=== PATIENT | male | born 1980 | race Caucasian/White ===

== ENCOUNTER 2019-11-25 00:44 | Inpatient (IN) | payer MEDICAID ==
[2019-11-25] MEDS ORDERED: Acetaminophen 500 MG Tab PO ONE (01:07)
[2019-11-25 01:51] LABS: CHLORIDE,CL 94 mmol/L (98-115); SODIUM,NA 128 mmol/L (136-145)
[2019-11-25] MEDS ORDERED: Sodium Chloride 0.9% 1,000 ML IV ONE (01:57)
[2019-11-25] MEDS ORDERED: Sodium Chloride 0.9% 10 ML Syringe FLUSH PRN (02:00)
[2019-11-25] MEDS ORDERED: Levofloxacin/Dextrose 5%-Water 500 MG in Premix Bag 1 BAG IV ONE (02:06)
[2019-11-25] MEDS ORDERED: Ondansetron 4 MG/2 ML SDV IV PRN (02:52)
[2019-11-25] MEDS ORDERED: Ondansetron 4 MG Tab.DIS PO PRN (02:52)
[2019-11-25] MEDS ORDERED: Docusate Sodium 100 MG Cap PO PRN (02:52)
[2019-11-25] MEDS ORDERED: Albuterol 0.083% 2.5 MG/3 ML Neb Soln NEB PRN (02:52)
--- NOTE | 2019-11-25 03:17 | EDM.PDOC ---
ED HPI GENERAL MEDICAL PROBLEM - General Chief Complaint: General Stated Complaint: fever, body aches,on antibiotic Time Seen by Provider: 11/25/19 01:00 Source of Information: Reports: Patient History Limitations: Reports: No Limitations - History of Present Illness INITIAL COMMENTS - FREE TEXT/NARRATIVE: 39-year-old male presents with a fever over the last of 48-72 hours. He's been taking Tylenol and ibuprofen without improvement. He complains of cough, muscle aches, and weakness. He was seen in [facility] on Tuesday just prior to closing was started on Zithromax which patient picked up today at the pharmacy. His temperature upon arrival was 102.8. Onset: Gradual Onset Date: 11/22/19 Duration: Day(s):, Getting Worse Location: Reports: Chest Quality: Reports: Ache Severity: Severe Improves with: Reports: None Worsens with: Reports: None Associated Symptoms: Reports: Cough, Fever/Chills, Weakness. Denies: Chest Pain , Diaphoresis, Headaches, Nausea/Vomiting Treatments INSTRUMENTATION SPECIALIST: Reports: Acetaminophen, NSAIDS - Related Data Allergies Allergy/AdvReac Type Severity Reaction Status Date / Time nickel Allergy Rash Verified 11/25/19 03:20 No Known Drug Allergies Allergy none Verified 11/25/19 03:20 Home Meds: Home Meds Gabapentin [Neurontin] 600 mg PO BEDTIME 07/12/18 [History] Azithromycin 500 mg PO DAILY 11/25/19 [History] metFORMIN [Glucophage] 1,000 mg PO BIDMEALS 11/25/19 [History] oxyCODONE HCl/Acetaminophen [Oxycodone-Acetaminophen 10-300] 1 each PO Q6H PRN 11/25/19 [History] Past Medical History HEENT History: Reports: Otitis Media Other HEENT History: as a child Respiratory History: Reports: Asthma, Other (See Below) Other Respiratory History: as a child Gastrointestinal History: Reports: Other (See Below) Other Gastrointestinal History: "gallbladder" attacks for over 3 years. diarrhea if he skips a meal Other Musculoskeletal History: bulging disc and protruding discs backwith steroid inj in the past. Endocrine/Metabolic History: Reports: Diabetes, Type II Other Endocrine/Metabolic History: had DMII 4 years ago po med for same Dermatologic History: Reports: Psoriasis - Past Surgical History HEENT Surgical History: Reports: Adenoidectomy, Tonsillectomy Respiratory Surgical History: Reports: None GI Surgical History: Reports: Cholecystectomy Social & Family History - Tobacco Use Smoking Status *Q: Current Every Day Smoker Years of Tobacco use: 20 Packs/Tins Daily: 1 - Caffeine Use Caffeine Use: Reports: Soda - Recreational Drug Use Recreational Drug Use: No ED ROS GENERAL - Review of Systems Review Of Systems: See Below Constitutional: Reports: Fever, Weakness HEENT: Reports: Throat Pain Respiratory: Reports: Shortness of Breath, Wheezing Cardiovascular: Denies: Chest Pain Endocrine: Reports: High Glucose GI/Abdominal: Denies: Abdominal Pain, Diarrhea, Nausea, Vomiting : Reports: No Symptoms Musculoskeletal: Reports: Muscle Pain (aches) Skin: Reports: No Symptoms Neurological: Reports: No Symptoms ED EXAM, GENERAL - Physical Exam Exam: See Below Free Text/Narrative:: obese male who is profusely sweating, skin is warm, short of breath. Exam Limited By: No Limitations General Appearance: Alert, Mild Distress, Obese Eye Exam: Bilateral Eye: EOMI, PERRL Ears: Hearing Grossly Normal, Normal TMs Nose: Normal Inspection Throat/Mouth: Normal Inspection, Normal Teeth, Normal Oropharynx, Normal Voice, No Airway Compromise Head: Atraumatic, Normocephalic Neck: Normal Inspection, Supple, Non-Tender, Full Range of Motion. No: Lymphadenopathy (L), Lymphadenopathy (R) Respiratory/Chest: No Respiratory Distress, Decreased Breath Sounds (Right lower lung bases), Wheezing. No: Accessory Muscle Use, Retractions Cardiovascular: Tachycardia GI/Abdominal: Normal Bowel Sounds, Soft, Non-Tender Back Exam: Normal Inspection, Full Range of Motion Extremities: Normal Inspection, Normal Range of Motion Neurological: Alert, Oriented, CN II-XII Intact, Normal Cognition, Normal Gait, No Motor/Sensory Deficits Psychiatric: Normal Affect, Normal Mood Skin Exam: Warm, Diaphoretic Lymphatic: No Adenopathy Course - Vital Signs Last Recorded V/S: Last Vital Signs Temp 101 F H 11/25/19 02:25 Pulse 98 11/25/19 02:25 Resp 20 11/25/19 02:25 BP 129/69 11/25/19 02:25 Pulse Ox 95 11/25/19 02:25 - Orders/Labs/Meds Orders: Active Orders 24 hr Category Date Time Status CXR [Chest 2V] [CR] Stat Exams 11/25/19 01:39 Ordered Medication Orders Acetaminophen (Tylenol) 650 mg PO Q4H PRN PRN Reason: Pain (Mild 1-3)/fever Albuterol (Proventil Neb Soln) 2.5 mg NEB Q2H PRN PRN Reason: Shortness Of Breath/wheezing Docusate Sodium (Colace) 100 mg PO BID PRN PRN Reason: Constipation Gabapentin (Neurontin) 600 mg PO BEDTIME [facility] Levofloxacin/Dextrose 500 mg/ (Premix) 100 mls @ 100 mls/hr IV Q24H [facility] Metformin HCl (Glucophage) 1,000 mg PO BIDMEALS [facility] Non-Formulary Medication (Azithromycin [Azithromycin]) 500 mg PO DAILY [facility] Non-Formulary Medication (Oxycodone Hcl/Acetaminophen [Oxycodone-Acetaminophen 10-300]) 1 each PO Q6H PRN PRN Reason: Pain (moderate 4-6) Ondansetron HCl (Zofran Odt) 4 mg PO Q4H PRN PRN Reason: nausea, able to take PO Ondansetron HCl (Zofran) 4 mg IV Q4H PRN PRN Reason: Nausea/Vomiting Labs: Laboratory Tests 11/25/19 11/25/19 Range/Units 01:28 01:28 WBC 15.13 H (5.00-10.00) 10^3/uL RBC 4.62 (4.50-6.00) 10^6/uL Hgb 14.8 D (13.0-17.0) g/dL Hct 41.1 (40.0-52.0) % MCV 89.0 (82.0-92.0) fL MCH 32.0 H (27.0-31.0) pg MCHC 36.0 (32.0-36.0) g/dL RDW 12.2 (11.5-14.5) % Plt Count 147 L (150-400) 10^3/uL MPV 10.3 (7.4-10.4) fL Immature Gran % (Auto) 0.3 (0.0-5.0) % Neut % (Auto) 84.3 H (50.0-70.0) % Lymph % (Auto) 9.1 L (20.0-40.0) % Greer % (Auto) 6.1 (2.0-8.0) % Eos % (Auto) 0.1 L (1.0-3.0) % Baso % (Auto) 0.1 (0.0-1.0) % Immature Gran # (Auto) 0.05 (0.00-0.50) 10^3/uL Neut # (Auto) 12.76 H (2.50-7.00) 10^3/uL Lymph # (Auto) 1.37 (1.00-4.00) 10^3/uL Greer # (Auto) 0.92 H (0.10-0.80) 10^3/uL Eos # (Auto) 0.01 L (0.10-0.30) 10^3/uL Baso # (Auto) 0.02 (0.00-0.10) 10^3/uL Sodium 128 L D (136-145) mmol/L Potassium 3.8 (3.3-5.3) mmol/L Chloride 94 L (98-115) mmol/L Carbon Dioxide 22.8 (21.0-32.0) mmol/L Anion Gap 15.0 (5-15) mmol/L BUN 8 (6-25) mg/dL Creatinine 0.61 (0.51-1.17) mg/dL Est Cr Clr Drug Dosing 174.88 mL/min Estimated GFR (MDRD) > 60 mL/min Glucose 228 H (75 - 99) mg/dL Calcium 9.0 (8.7-10.3) mg/dL Meds: Medications Generic Name Dose Route Start Last Admin Trade Name Freq PRN Reason Stop Dose Admin Acetaminophen 650 mg 11/25/19 02:52 Tylenol PO Q4H PRN Pain (Mild 1-3)/fever Albuterol 2.5 mg 11/25/19 02:52 Proventil Neb Soln NEB Q2H PRN Shortness Of Breath/wheezing Docusate Sodium 100 mg 11/25/19 02:52 Colace PO BID PRN Constipation Gabapentin 600 mg 11/25/19 21:00 Neurontin PO BEDTIME [facility] Levofloxacin/Dextrose 500 mg/ 100 mls @ 100 mls/hr 11/25/19 03:15 Premix IV Q24H [facility] Metformin HCl 1,000 mg 11/25/19 08:00 Glucophage PO BIDMEALS [facility] Non-Formulary Medication 500 mg 11/25/19 09:00 Azithromycin [Azithromycin] PO DAILY [facility] Non-Formulary Medication 1 each 11/25/19 03:07 Oxycodone Hcl/Acetaminophen [Oxycodone-Acetaminophen 10-300] PO Q6H PRN Pain (moderate 4-6) Ondansetron HCl 4 mg 11/25/19 02:52 Zofran Odt PO Q4H PRN nausea, able to take PO Ondansetron HCl 4 mg 11/25/19 02:52 Zofran IV Q4H PRN Nausea/Vomiting Discontinued Medications Generic Name Dose Route Start Last Admin Trade Name Freq PRN Reason Stop Dose Admin Acetaminophen 1,000 mg 11/25/19 01:07 11/25/19 01:25 Tylenol Extra Strength PO 11/25/19 01:08 1,000 mg ONETIME ONE Administration Sodium Chloride 1,000 mls @ 1,000 mls/hr 11/25/19 01:57 11/25/19 02:14 Normal Saline IV 11/25/19 02:56 1,000 mls/hr .BOLUS ONE Administration Levofloxacin/Dextrose 500 mg/ 100 mls @ 100 mls/hr 11/25/19 02:06 11/25/19 02 :15 Premix IV 11/25/19 03:05 6 mls/hr ONETIME ONE Administration - Radiology Interpretation Free Text/Narrative:: Chest x-ray 2 views Findings: Normal heart and mediastinal contours. Airspace opacity in the right lower lobe. Hazy opacity right upper lobe laterally. No pleural effusion or pneumothorax No displaced fracture. Moderate spondylosis. No radiopaque foreign body. Impression: -Right lower lobe pneumonia. Likely additional focus of infection in the right upper lobe Departure - Departure Time of Disposition: 03:25 Disposition: Admitted As Inpatient 67 Condition: Fair Clinical Impression: Hyponatremia Right lower lobe pneumonia Qualifiers: Pneumonia type: due to unspecified organism Qualified Code(s): J18.9 - Pneumonia, unspecified organism - Discharge Information Sepsis Event Note - Evaluation Sepsis Screening Result: Possible Sepsis Risk - Focused Exam Vital Signs: Vital Signs Temp Temp Pulse Resp BP Pulse Ox 11/25/19 02:25 101 F H 98 20 129/69 95 11/25/19 01:25 102.9 F H 11/25/19 00:50 102.9 F H 116 H 24 H 122/53 L 93 L Date Exam was Performed: 11/25/19 Time Exam was Performed: 03:11 - My Orders Last 24 Hours: My Active Orders 11/25/19 01:39 CXR [Chest 2V] [CR] Stat - Assessment/Plan Last 24 Hours: My Active Orders 11/25/19 01:39 CXR [Chest 2V] [CR] Stat Assessment:: Right lobe pneumonia Hyponatremia Plan: 1. Use ER note as admission patient's note. 2. Patient is on Zithromax 250 mg daily beginning tomorrow. He took 500 mg a Zithromax today. We'll begin Levaquin 500 mg IV daily. 3. Patient is hyponatremic we will replace with IV fluids. 4. A.m. lab draws CBC with differential, BMP. 5. Resume patient's regular home prescribed medications. 6. Patient was given 1 L normal saline bolus, will resume 50 mL an hour for second liter and saline lock after 2 L have been given total.
[2019-11-25] MEDS: Levofloxacin/Dextrose 5%-Water 500 MG in Premix Bag 1 BAG IV SCH (04:19)
[2019-11-25] MEDS: Acetaminophen 325 MG Tab PO PRN ×3 (07:36→18:00)
[2019-11-25] MEDS: metFORMIN 500 MG Tab PO SCH ×2 (07:39→17:49)
[2019-11-25 07:43] LABS: ANION GAP 13.8 mmol/L (5-15); CHLORIDE,CL 96 mmol/L (98-115); SODIUM,NA 133 mmol/L (136-145)
[2019-11-25] MEDS ORDERED: AZITHROMYCIN 500 MG PO SCH (09:00)
--- NOTE | 2019-11-25 10:29 | CR ---
[id number] RAD/RAD Chest PA And Lateral EXAM: RAD Chest PA And Lateral CLINICAL DATA: FEVER AND COUGH SHORTNESS OF BREATH COMPARISON: NO PREVIOUS SIMILAR EXAM IS AVAILABLE. FINDINGS: An extensive left lower lobe infiltrate is seen There is a minimal right upper lobe infiltrate The cardiac silhouette is moderately prominent IMPRESSION: LEFT LOWER LOBE PNEUMONIA MINIMAL RIGHT UPPER LOBE PNEUMONIA CONSIDER FOLLOW-UP Nigel Pitt MD 11/25/19 1428 Thank you for allowing us to participate in the care of your patient.
--- NOTE | 2019-11-25 11:58 | PCM.PN ---
- General Info Date of Service: 11/25/19 Admission Dx/Problem (Free Text): pneumonia Functional Status: Reports: Pain Controlled Pain Score: 2 - Review of Systems General: Reports: Fever HEENT: Reports: No Symptoms Pulmonary: Reports: Shortness of Breath, Cough Cardiovascular: Reports: No Symptoms Gastrointestinal: Reports: No Symptoms Genitourinary: Reports: No Symptoms Musculoskeletal: Reports: Back Pain (chronic) Skin: Reports: No Symptoms Neurological: Reports: No Symptoms Psychiatric: Reports: No Symptoms - Patient Data Vitals - Most Recent: Last Vital Signs Temp 97.9 F 11/25/19 11:00 Pulse 102 H 11/25/19 11:00 Resp 20 11/25/19 11:00 BP 126/81 11/25/19 11:00 Pulse Ox 97 11/25/19 11:00 Weight - Most Recent: 265 lb I&O - Last 24 Hours: Intake & Output 11/24/19 11/25/19 11/25/19 22:59 06:59 14:59 Intake Total 1630 Output Total 900 Balance 730 Lab Results Last 24 Hours: Laboratory Results - last 24 hr 11/25/19 11/25/19 11/25/19 Range/Units 01:28 01:28 07:08 WBC 15.13 H (5.00-10.00) 10^3/uL RBC 4.62 (4.50-6.00) 10^6/uL Hgb 14.8 D (13.0-17.0) g/dL Hct 41.1 (40.0-52.0) % MCV 89.0 (82.0-92.0) fL MCH 32.0 H (27.0-31.0) pg MCHC 36.0 (32.0-36.0) g/dL RDW 12.2 (11.5-14.5) % Plt Count 147 L (150-400) 10^3/uL MPV 10.3 (7.4-10.4) fL Immature Gran % (Auto) 0.3 (0.0-5.0) % Neut % (Auto) 84.3 H (50.0-70.0) % Lymph % (Auto) 9.1 L (20.0-40.0) % Appling % (Auto) 6.1 (2.0-8.0) % Eos % (Auto) 0.1 L (1.0-3.0) % Baso % (Auto) 0.1 (0.0-1.0) % Immature Gran # (Auto) 0.05 (0.00-0.50) 10^3/uL Neut # (Auto) 12.76 H (2.50-7.00) 10^3/uL Lymph # (Auto) 1.37 (1.00-4.00) 10^3/uL Appling # (Auto) 0.92 H (0.10-0.80) 10^3/uL Eos # (Auto) 0.01 L (0.10-0.30) 10^3/uL Baso # (Auto) 0.02 (0.00-0.10) 10^3/uL Sodium 128 L D (136-145) mmol/L Potassium 3.8 (3.3-5.3) mmol/L Chloride 94 L (98-115) mmol/L Carbon Dioxide 22.8 (21.0-32.0) mmol/L Anion Gap 15.0 (5-15) mmol/L BUN 8 (6-25) mg/dL Creatinine 0.61 (0.51-1.17) mg/dL Est Cr Clr Drug Dosing 174.88 mL/min Estimated GFR (MDRD) > 60 mL/min Glucose 228 H (75 - 99) mg/dL POC Glucose 197 H (74-106) mg/dl Calcium 9.0 (8.7-10.3) mg/dL 11/25/19 11/25/19 Range/Units 07:10 07:10 WBC 11.84 H (5.00-10.00) 10^3/uL RBC 4.56 (4.50-6.00) 10^6/uL Hgb 14.4 (13.0-17.0) g/dL Hct 41.5 (40.0-52.0) % MCV 91.0 (82.0-92.0) fL MCH 31.6 H (27.0-31.0) pg MCHC 34.7 (32.0-36.0) g/dL RDW 12.4 (11.5-14.5) % Plt Count 139 L (150-400) 10^3/uL MPV 10.5 H (7.4-10.4) fL Immature Gran % (Auto) 0.3 (0.0-5.0) % Neut % (Auto) 82.2 H (50.0-70.0) % Lymph % (Auto) 9.9 L (20.0-40.0) % Appling % (Auto) 7.2 (2.0-8.0) % Eos % (Auto) 0.2 L (1.0-3.0) % Baso % (Auto) 0.2 (0.0-1.0) % Immature Gran # (Auto) 0.04 (0.00-0.50) 10^3/uL Neut # (Auto) 9.74 H (2.50-7.00) 10^3/uL Lymph # (Auto) 1.17 (1.00-4.00) 10^3/uL Appling # (Auto) 0.85 H (0.10-0.80) 10^3/uL Eos # (Auto) 0.02 L (0.10-0.30) 10^3/uL Baso # (Auto) 0.02 (0.00-0.10) 10^3/uL Sodium 133 L (136-145) mmol/L Potassium 3.9 (3.3-5.3) mmol/L Chloride 96 L (98-115) mmol/L Carbon Dioxide 27.1 (21.0-32.0) mmol/L Anion Gap 13.8 (5-15) mmol/L BUN 8 (6-25) mg/dL Creatinine 0.72 (0.51-1.17) mg/dL Est Cr Clr Drug Dosing 148.16 mL/min Estimated GFR (MDRD) > 60 mL/min Glucose 198 H (75 - 99) mg/dL POC Glucose (74-106) mg/dl Calcium 8.7 (8.7-10.3) mg/dL Med Orders - Current: Current Medications Acetaminophen (Tylenol) 650 mg PO Q4H PRN PRN Reason: Pain (Mild 1-3)/fever Last Admin: 11/25/19 11:41 Dose: 650 mg Albuterol (Proventil Neb Soln) 2.5 mg NEB Q2H PRN PRN Reason: Shortness Of Breath/wheezing Diphenhydramine HCl (Benadryl) 25 mg PO Q4H PRN PRN Reason: Itching Docusate Sodium (Colace) 100 mg PO BID PRN PRN Reason: Constipation Last Admin: 11/25/19 07:40 Dose: 100 mg Gabapentin (Neurontin) 600 mg PO BEDTIME [facility] Levofloxacin/Dextrose 500 mg/ (Premix) 100 mls @ 100 mls/hr IV Q24H [facility] Last Admin: 11/25/19 04:19 Dose: Not Given Metformin HCl (Glucophage) 1,000 mg PO BIDMEALS [facility] Last Admin: 11/25/19 07:39 Dose: 1,000 mg Non-Formulary Medication (Azithromycin [Azithromycin]) 500 mg PO DAILY [facility] Non-Formulary Medication (Oxycodone Hcl/Acetaminophen [Oxycodone-Acetaminophen 10-300]) 1 each PO Q6H PRN PRN Reason: Pain (moderate 4-6) Ondansetron HCl (Zofran Odt) 4 mg PO Q4H PRN PRN Reason: nausea, able to take PO Ondansetron HCl (Zofran) 4 mg IV Q4H PRN PRN Reason: Nausea/Vomiting Sodium Chloride (Saline Flush) 10 ml FLUSH Q8HR PRN PRN Reason: keep vein open Sodium Chloride (Normal Saline) 100 ml IV DAILY [facility] Discontinued Medications Acetaminophen (Tylenol Extra Strength) 1,000 mg PO ONETIME ONE Stop: 11/25/19 01:08 Last Admin: 11/25/19 01:25 Dose: 1,000 mg Sodium Chloride (Normal Saline) 1,000 mls @ 1,000 mls/hr IV .BOLUS ONE Stop: 11/25/19 02:56 Last Admin: 11/25/19 02:14 Dose: 1,000 mls/hr Levofloxacin/Dextrose 500 mg/ (Premix) 100 mls @ 100 mls/hr IV ONETIME ONE Stop: 11/25/19 03:05 Last Admin: 11/25/19 02:15 Dose: 6 mls/hr Comments:: Feeling better, still having low grade temps. Electroytes improved, Na 133 this am. WBC down to 11.84 - Exam General: Alert, Oriented, Cooperative, No Acute Distress HEENT: EOMI Neck: Supple Lungs: Decreased Breath Sounds (right side), Rales (mild) Cardiovascular: Regular Rate, Regular Rhythm GI/Abdominal Exam: Soft, Non-Tender Back Exam: Normal Inspection Extremities: Normal Inspection, Normal Range of Motion, No Pedal Edema Skin: Warm, Dry, Intact Neurological: No New Focal Deficit Psy/Mental Status: Alert, Normal Affect, Normal Mood Sepsis Event Note - Evaluation Sepsis Screening Result: No Definite Risk Possible Source of Sepsis: Pulmonary - Focused Exam Vital Signs: Vital Signs Temp Temp Temp Pulse Resp BP BP 11/25/19 11:00 97.9 F 102 H 20 126/81 11/25/19 07:36 99.4 F 11/25/19 06:20 98.2 F 98 20 131/86 11/25/19 03:35 97.1 F 11/25/19 02:25 101 F H 98 20 129/69 11/25/19 01:55 101 F H 11/25/19 01:25 102.9 F H 11/25/19 00:50 102.9 F H 116 H 24 H 122/53 L Pulse Ox 11/25/19 11:00 97 11/25/19 07:36 11/25/19 06:20 97 11/25/19 03:35 11/25/19 02:25 95 11/25/19 01:55 11/25/19 01:25 11/25/19 00:50 93 L Respiratory Effort Without Exertion: Use Of Accessory Muscles Heart Sounds: Other (see below) (regular) Pulse Description: 2+ Normal Skin Exam (Focused Sepsis): Normal Turgor Date Exam was Performed: 11/25/19 Time Exam was Performed: 12:00 - Problem List Review Problem List Initiated/Reviewed/Updated: Yes - My Orders Last 24 Hours: My Active Orders 11/25/19 00:50 RESPIRATORY CULT [MREF] Stat 11/25/19 02:00 Sodium Chloride 0.9% [Saline Flush] 10 ml FLUSH Q8HR PRN Saline Lock Insert [OM.PC] Routine 11/25/19 02:52 Patient Status [ADT] Routine Ambulate [RC] DAILY Blood Glucose Check, Bedside [RC] BIDMEALS Height and Weight [RC] DAILY Oxygen Therapy [RC] PRN Up ad Fani [RC] DAILY Vital Signs [RC] 0700,1100,1500,1900,2300 Acetaminophen [Tylenol] 650 mg PO Q4H PRN Albuterol [Proventil Neb Soln] 2.5 mg NEB Q2H PRN Docusate Sodium [Colace] 100 mg PO BID PRN Ondansetron [Zofran ODT] 4 mg PO Q4H PRN Ondansetron [Zofran] 4 mg IV Q4H PRN Resuscitation Status Routine 11/25/19 02:55 Intake and Output [RC] 1400,2200,0600 11/25/19 03:05 RT Aerosol Therapy [RC] .PRN 11/25/19 03:07 oxyCODONE HCl/Acetaminophen [Oxycodone-Acetaminophen 10-300] 1 each PO Q6H PRN 11/25/19 03:12 diphenhydrAMINE [Benadryl] 25 mg PO Q4H PRN 11/25/19 03:15 Levofloxacin/Dextrose 5%-Water [Levaquin in D5W 500 MG/100 ML] 500 mg Premix Bag 1 bag IV Q24H 11/25/19 08:00 metFORMIN [Glucophage] 1,000 mg PO BIDMEALS 11/25/19 09:00 Azithromycin [Azithromycin] 500 mg PO DAILY 11/25/19 21:00 Gabapentin [Neurontin] 600 mg PO BEDTIME - Assessment Assessment:: pneumonia Hyponatremia resolved. - Plan Plan:: Continue with IV antibiotics. Possible home tomorrow on orals. am lab draw.
[2019-11-25] MEDS ORDERED: Acetaminophen/oxyCODONE 325-5 MG Tab PO PRN (12:02)
[2019-11-25] MEDS: Azithromycin 250 MG Tab PO SCH (13:52)
[2019-11-25] MEDS: Ibuprofen 400 MG Tab PO PRN ×2 (13:53→22:01)
[2019-11-25] MEDS: Nicotine 21 MG/24 Hr Patch TRDERM SCH (16:07)
[2019-11-25] MEDS: Gabapentin 300 MG Cap PO SCH (20:35)
[2019-11-26] MEDS: Acetaminophen 325 MG Tab PO PRN ×3 (01:25→20:01)
[2019-11-26] MEDS: Sodium Chloride 0.9% 10 ML SDV IV SCH ×3 (01:30→10:57)
[2019-11-26] MEDS: Levofloxacin/Dextrose 5%-Water 500 MG in Premix Bag 1 BAG IV SCH ×3 (01:30→23:01)
[2019-11-26] MEDS: diphenhydrAMINE 25 MG Cap PO PRN ×2 (01:35→22:59)
[2019-11-26] MEDS: Ibuprofen 400 MG Tab PO PRN ×2 (05:59→15:16)
[2019-11-26] MEDS: Azithromycin 250 MG Tab PO SCH (08:06)
[2019-11-26] MEDS: metFORMIN 500 MG Tab PO SCH ×2 (08:06→17:36)
[2019-11-26] MEDS: Nicotine 21 MG/24 Hr Patch TRDERM SCH (08:07)
[2019-11-26 08:22] LABS: CHLORIDE,CL 102 mmol/L (98-115); SODIUM,NA 140 mmol/L (136-145)
[2019-11-26] MEDS: Albuterol/Ipratropium 3.0-0.5 MG/3 ML Neb Soln NEB SCH ×6 (09:46→21:45)
--- NOTE | 2019-11-26 13:52 | PN ---
11/26/2019 PATIENT NAME: ETELVINA LIVE HISTORY OF PRESENT ILLNESS: Etelvina Live was admitted through the emergency room on 11/25/2019, with body aches, fever. The patient had been unable to get into the clinic for an appointment on Tuesday and called to see if a Z-Evin could be called to his pharmacy. This was called in for him by me actually. The patient did not get better and presented to the emergency room where he was found to have left lower lobe pneumonia and right upper lobe pneumonia. X-ray confirmed the same. He is currently on Levaquin as well as Zithromax. He was hyponatremic when he was admitted to the hospital and this did resolve with IV fluids. His white count was 15,000 on admission and now has trended down to slightly over 10,000. The remainder of his lab work looks fairly stable. His blood sugar is elevated. He does have a history of diabetes mellitus and is on metformin. PHYSICAL EXAMINATION: VITAL SIGNS: Temp is 97.6, pulse 85, respirations 20, blood pressure 121/76, O2 saturation is 95% on room air. SKIN: Diaphoretic, warm to touch. CARDIAC: Reveals S1, S2 to be normal. Rate and rhythm are regular. No murmur, click, or gallop is auscultated lungs have inspiratory as well as expiratory wheezes with rhonchi throughout. ABDOMEN: Obese, soft, nontender. Bowel sounds present in all four quadrants. There is no pedal edema. IMPRESSION: Left lower lobe pneumonia and minimal right upper lobe pneumonia. The patient will continue on oral Zithromax as well as intravenous Levaquin. He last had a temp at three o'clock yesterday. He may be able to go home tomorrow, he is fever free in the next 24 hours. I did add duo nebs to his medication regimen to be given q.i.d. during the day. He may also use albuterol as needed every 4 hours. He has lab work ordered for the morning. /[id number]/MODL
[2019-11-26] MEDS: Gabapentin 300 MG Cap PO SCH (20:19)
[2019-11-26] MEDS ORDERED: Sodium Chloride 0.9% 100 ML IV SCH (23:30)
[2019-11-27] MEDS: Ibuprofen 400 MG Tab PO PRN (05:01)
[2019-11-27] MEDS: Albuterol/Ipratropium 3.0-0.5 MG/3 ML Neb Soln NEB SCH ×2 (05:56→10:45)
[2019-11-27] MEDS: metFORMIN 500 MG Tab PO SCH (07:56)
[2019-11-27] MEDS: Azithromycin 250 MG Tab PO SCH (08:06)
[2019-11-27] MEDS: Nicotine 21 MG/24 Hr Patch TRDERM SCH (08:23)
[2019-11-27 11:16] VITALS: BP 139/78; PULSE 87
--- NOTE | 2019-11-28 10:51 | DISCH ---
HOSPITAL COURSE: This is a 39-year-old male, who was admitted to the emergency room on 11/25/2019, with left lower lobe pneumonia and minimal right upper lobe pneumonia. His left lower lobe was almost completely obliterated with pneumonia. He was treated with Zithromax 500 mg daily orally for a total of 5 days. He also received Levaquin for a total of 3 days intravenously. The patient has been running just a low-grade temperature at 99. He feels much better. He was experiencing excruciating headaches when his fevers spiked. These have improved considerably. The patient has improved to the point where I believe he can be discharged. He did have an elevated white count of 15,000 on admission which has trended down to just slightly over 10,000 yesterday. The remainder of his lab work looks fairly stable. His blood sugar is elevated. He does have a history of diabetes mellitus and is on metformin. He was started on nebulizer treatments with DuoNeb and given albuterol as needed. He will be discharged with the same. As mentioned before, he does have diabetes mellitus and is taking metformin. His diabetes has been uncontrolled. He recently increased his metformin from 500 mg p.o. b.i.d. to a 1000 mg b.i.d. He has a history of chronic back pain and does have an oxycodone/acetaminophen prescription for the same. He does use gabapentin for neuropathy in his feet. PHYSICAL EXAMINATION: VITAL SIGNS: Temp is 97.5, pulse 101, respirations 24, blood pressure 136/81, oxygen saturation is 93% on room air. SKIN: Warm and dry to touch. CARDIAC: Reveals S1, S2 to be normal. Rate and rhythm are regular. No murmur, click, or gallop is auscultated. LUNGS: Actually clear today when compared to yesterday he had inspiratory and expiratory wheezes and rhonchi. He is a little diminished in the bases. Especially, at the left base. ABDOMEN: Obese, soft, nontender. Bowel sounds present in all four quadrants. There is no pedal edema. IMPRESSION: 1. Left lower lobe pneumonia with almost complete obliteration of the left lower lobe and minimal right upper lobe pneumonia. He has completed 5 days of azithromycin orally at a dose of 500 mg. This will be discontinued. He has had 3 days of IV Levaquin. He will be discharged on Levaquin 500 mg to be taken daily for an additional 7 days. He will also be discharged with DuoNeb solution and albuterol solution to be used per nebulizer. The patient does have a nebulizer at home. The patient will follow up with me in 1 week's time should he have any issues or concerns. Prior to that time, he was instructed to call the clinic or the hospital, and he was provided phone numbers for both. 2. Diabetes mellitus, uncontrolled. We will continue to work with him on controlling his diabetes. 3. Chronic back pain, on oxycodone/APAP for the same. 4. Diabetic neuropathy of the feet, on gabapentin. The aforementioned are his discharge diagnoses as well. The patient will be followed as an outpatient. He has been informed that in 6 weeks from now he will need a repeat chest x-ray to make sure that his pneumonia has cleared and it has not masked any underlying findings. /[id number]/MODL
== END 2019-11-27 11:55 | disposition home or self-care (01) | DRG 194 ==
LOC: KA.ED 00:44 → UNDOADMIN 02:47 → KA.MS 02:47
PROVIDERS: ADMIT Physician Assistant
DX: J18.9 Pneumonia, unspecified organism (principal); E87.1 Hypo-osmolality and hyponatremia; G89.29 Other chronic pain; M54.9 Dorsalgia, unspecified; E11.40 Type 2 diabetes mellitus with diabetic neuropathy, unspecified; J45.909 Unspecified asthma, uncomplicated; F17.210 Nicotine dependence, cigarettes, uncomplicated; Z79.84 Long term (current) use of oral hypoglycemic drugs; Z91.048 Other nonmedicinal substance allergy status; Z79.899 Other long term (current) drug therapy; Z90.89 Acquired absence of other organs; Z90.49 Acquired absence of other specified parts of digestive tract
CPT/HCPCS: 36415; 71046; 80048; 82607; 82962; 85025; 87070; 87205; 94640; 96365; 99285-25; A9270-GY; J1956; J7030; J7613-GY; J7620-GY

== ENCOUNTER 2020-12-25 14:42 | Emergency (ER) | payer MEDICAID, OTHER ==
[2020-12-25 14:58] VITALS: BP 136/82; PULSE 91
--- NOTE | 2020-12-25 15:05 | EDM.PDOC ---
ED HPI GENERAL MEDICAL PROBLEM - General Chief Complaint: General Stated Complaint: BROKEN ANKLE Time Seen by Provider: 12/25/20 15:05 Source of Information: Reports: Patient - History of Present Illness INITIAL COMMENTS - FREE TEXT/NARRATIVE: Mauro, 40-year-old male[place] 2 elevated pieces of concrete feeling a pop in his ankle. Has been able to weight-bear but is very positional and how it exacerbates his discomfort. Has sprained in the past stating he had a complete rolling of the ankle eversion. States his psoriasis have been significant and is scheduled to be seen dermatology in the upcoming weeks as well as his diabetic control has not been as good as hoped for secondary of medication issues while he was Covid positive limiting his glucose intake, also that he started drinking pop again. Onset: Today, Sudden Duration: Minutes: Left Ankle Pain Score (Numeric/FACES): 3 - Related Data Allergies Allergy/AdvReac Type Severity Reaction Status Date / Time nickel Allergy Rash Verified 12/25/20 14:58 No Known Drug Allergies Allergy none Verified 12/25/20 14:58 Home Meds: Home Meds Gabapentin [Neurontin] 600 mg PO BEDTIME 07/12/18 [History] metFORMIN [Glucophage] 1,000 mg PO BIDMEALS 11/25/19 [History] Acetaminophen [Tylenol] 650 mg PO Q4H PRN tablet 11/27/19 [Rx] glipiZIDE [Glucotrol] 10 mg PO BID 12/25/20 [History] Past Medical History HEENT History: Reports: Otitis Media Other HEENT History: as a child Respiratory History: Reports: Asthma, Other (See Below) Other Respiratory History: as a child Gastrointestinal History: Reports: Other (See Below) Other Gastrointestinal History: "gallbladder" attacks for over 3 years. diarrhea if he skips a meal Other Musculoskeletal History: bulging disc and protruding discs backwith steroid inj in the past. gen muscle aches Endocrine/Metabolic History: Reports: Diabetes, Type II Other Endocrine/Metabolic History: had DMII 4 years ago po med for same Dermatologic History: Reports: Psoriasis Other Dermatologic History: to elbows, knees, R lower ant leg and area to back - Past Surgical History HEENT Surgical History: Reports: Adenoidectomy, Tonsillectomy Respiratory Surgical History: Reports: None GI Surgical History: Reports: Cholecystectomy Social & Family History - Family History Family Medical History: No Pertinent Family History - Tobacco Use Tobacco Use Status *Q: Current Every Day Tobacco User Years of Tobacco use: 20 Packs/Tins Daily: 1 - Caffeine Use Caffeine Use: Reports: Soda - Recreational Drug Use Recreational Drug Use: No ED ROS GENERAL - Review of Systems Review Of Systems: Comprehensive ROS is negative, except as noted in HPI. ED EXAM, GENERAL - Physical Exam Exam: See Below Free Text/Narrative:: Alert oriented conversing freely with no respiratory distress. HEENT appears negative to discharge or deformity. There is no respiratory distress with clear speech and no wheezes nor crackles appreciated. Pulses regular cardiac no murmur. Focused examination of the left ankle show significant psoriasis of the tib-fib region with minimal discomfort to the distal tib fib. There is mild tenderness to the malleolus lateral more so than medial with no noted deformity. There is a prominence to the fifth distal metatarsal region that he states has been uncomfortable for the past week or so. This does not have bearing on today's injury complaint. Course - Vital Signs Last Recorded V/S: Last Vital Signs Temp 96.6 F L 12/25/20 14:44 Pulse 91 12/25/20 14:44 Resp 16 12/25/20 14:44 BP 136/82 12/25/20 14:44 Pulse Ox 98 12/25/20 14:44 - Radiology Interpretation Free Text/Narrative:: 3 view x-ray shows on 1 view questionable chip of the distal styloid of the tibial medial malleolus. Over read is pending - Re-Assessments/Exams Free Text/Narrative Re-Assessment/Exam: 12/25/20 16:53 Called to advise of normal x-ray with no fracture or dislocation findings per radiology. Departure - Departure Time of Disposition: 16:10 Disposition: Home, Self-Care 01 Clinical Impression: Sprain of ankle, left Qualifiers: Encounter type: initial encounter Ankle pain, left Qualifiers: Chronicity: acute Qualified Code(s): M25.572 - Pain in left ankle and joints of left foot - Discharge Information Referrals: Erin Kimbrough PA-C [Primary Care Provider] - Forms: ED Department Discharge Additional Instructions: Ice and elevate as much as possible today. Limit activity for the next 12 to 24 hours. Use the ankle brace at all times until completely resolved and back to your normal baseline. As mentioned questionable linear chip does not involve weightbearing surface but may add to discomfort with positioning. We will contact you once official radiology report is made available. Follow-up with your clinic as needed and continue all your medications and good diabetic diet and lifestyle. Sepsis Event Note (ED) - Evaluation Sepsis Screening Result: No Definite Risk - Focused Exam Vital Signs: Vital Signs Temp Pulse Resp BP Pulse Ox 12/25/20 14:44 96.6 F L 91 16 136/82 98 - Problem List & Annotations (1) Ankle pain, left SNOMED Code(s): 159219998, 108592511 Code(s): M25.572 - PAIN IN LEFT ANKLE AND JOINTS OF LEFT FOOT Status: Acute Qualifiers: Chronicity: acute Qualified Code(s): M25.572 - Pain in left ankle and joints of left foot (2) Sprain of ankle, left SNOMED Code(s): 74050501, 93062814688083175 Code(s): S93.402A - SPRAIN OF UNSPECIFIED LIGAMENT OF LEFT ANKLE, INIT ENCNTR Status: Acute Qualifiers: Encounter type: initial encounter - Problem List Review Problem List Initiated/Reviewed/Updated: Yes - Assessment/Plan Plan: Ice and elevate as much as possible today. Limit activity for the next 12 to 24 hours. Use the ankle brace at all times until completely resolved and back to your normal baseline. As mentioned questionable linear chip does not involve weightbearing surface but may add to discomfort with positioning. We will contact you once official radiology report is made available. Follow-up with your clinic as needed and continue all your medications and good diabetic diet and lifestyle.
--- NOTE | 2020-12-25 16:09 | CR ---
[id number] RAD/RAD Ankle Left 3V Min EXAM: RAD Ankle Left 3V Min CLINICAL DATA: PAIN COMPARISON: No previous similar exam is available. FINDINGS: No fracture or dislocation is seen. There is no radiopaque foreign body in the soft tissues. There is no air in the soft tissues. There is no cortical thickening or periosteal reaction either. IMPRESSION: NEGATIVE PLAIN FILM EXAM. Nigel Pitt MD 12/25/20 [id number] Thank you for allowing us to participate in the care of your patient.
== END 2020-12-25 15:40 | disposition home or self-care (01) ==
LOC: KA.ED 14:42
DX: S93.402A Sprain of unspecified ligament of left ankle, initial encounter (principal); J45.909 Unspecified asthma, uncomplicated; E11.9 Type 2 diabetes mellitus without complications; Z79.84 Long term (current) use of oral hypoglycemic drugs; Z79.899 Other long term (current) drug therapy; Z72.0 Tobacco use; Z91.048 Other nonmedicinal substance allergy status; X58.XXXA Exposure to other specified factors, initial encounter
CPT/HCPCS: 73610-LT; 99283

== ENCOUNTER 2021-08-04 17:42 | Emergency (ER) | payer MEDICAID ==
--- NOTE | 2021-08-04 18:11 | EDM.PDOC ---
ED HPI GENERAL MEDICAL PROBLEM - General Stated Complaint: FOOT PAIN Time Seen by Provider: 08/04/21 17:44 Source of Information: Reports: Patient History Limitations: Reports: No Limitations - History of Present Illness INITIAL COMMENTS - FREE TEXT/NARRATIVE: Patient presents with a painful blister on his right heel. He noticed it this evening. He had a deep fissure and callous there 4 months ago; that was debrided and healed up quite well. Recently he developed an infection there and was placed on Levaquin. He says he missed two doses but finished up the last of the 8 tablets yesterday. He denies any history of MRSA. Right Foot Pain Score (Numeric/FACES): 7 - Related Data Allergies Allergy/AdvReac Type Severity Reaction Status Date / Time nickel Allergy Rash Verified 08/04/21 18:19 Home Meds: Home Meds Gabapentin [Neurontin] 600 mg PO BEDTIME 07/12/18 [History] metFORMIN [Glucophage] 1,000 mg PO DAILY 11/25/19 [History] Acetaminophen [Tylenol] 650 mg PO Q4H PRN tablet 11/27/19 [Rx] glipiZIDE [Glucotrol] 10 mg PO DAILY 12/25/20 [History] Past Medical History HEENT History: Reports: Otitis Media Other HEENT History: as a child Cardiovascular History: Reports: None Respiratory History: Reports: Asthma, Other (See Below) Other Respiratory History: as a child Gastrointestinal History: Reports: GERD, Other (See Below) Other Gastrointestinal History: "gallbladder" attacks for over 3 years. diarrhea if he skips a meal Genitourinary History: Reports: None Other Musculoskeletal History: bulging disc and protruding discs backwith steroid inj in the past. 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 Dermatologic History: Reports: Psoriasis Other Dermatologic History: to elbows, knees, R lower ant leg and area to back - Infectious Disease History Infectious Disease History: Reports: Chicken Pox, Novel Coronavirus - Past Surgical History Head Surgeries/Procedures: Reports: None HEENT Surgical History: Reports: Adenoidectomy, Tonsillectomy Cardiovascular Surgical History: Reports: None Respiratory Surgical History: Reports: None GI Surgical History: Reports: Cholecystectomy Male Surgical History: Reports: None Social & Family History - Family History Family Medical History: No Pertinent Family History - Caffeine Use Caffeine Use: Reports: Soda Review of Systems - Review of Systems Review Of Systems: See Below Constitutional: Denies: Chills, Fever Eyes: Reports: No Symptoms Ears: Reports: No Symptoms Nose: Reports: No Symptoms Mouth/Throat: Reports: No Symptoms Respiratory: Reports: No Symptoms Cardiovascular: Reports: No Symptoms GI/Abdominal: Reports: No Symptoms Genitourinary: Reports: No Symptoms Musculoskeletal: Reports: Back Pain (chronic). 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 He can feel the dorsal foot (sometimes hypersensitive) but not much on the plantar foot.) ED EXAM, GENERAL - Physical Exam Exam: See Below Exam Limited By: No Limitations General Appearance: Alert, WD/WN, No Apparent Distress Eye Exam: Bilateral Eye: EOMI, Normal Inspection, PERRL Ears: Normal External Exam, Hearing Grossly Normal Nose: Normal Inspection, No Blood Throat/Mouth: Normal Inspection, Normal Lips, Normal Voice, No Airway Compromise Head: Atraumatic, Normocephalic Neck: Normal Inspection, Full Range of Motion Respiratory/Chest: No Respiratory Distress, No Accessory Muscle Use, Wheezing (faint, transient; he says he has had some trouble with his asthma (from childhood) ever since he got covid 2 years ago) Cardiovascular: No Edema, No Murmur, Tachycardia (regular) Back Exam: Normal Inspection, Full Range of Motion. No: CVA Tenderness (L), CVA Tenderness (R) Extremities: Normal Capillary Refill, Other (The right heel has a 4 cm circular blister/abscess with proximal erythema about 3 cm up posterior heel/ankle; this red area is tender to palpation) Neurological: Alert, Oriented, Normal Cognition, Sensory/Motor Deficit (chronic on plantar foot) Skin Exam: Warm, Dry, Intact, Rash (large psoriatic plaques on bilat anterior knees) ED TRAUMA EXTREMITY PROCEDURES - I&D Site: Right posterior heel Skin Prep: Chlorhexidine (Hibiciens) Local Anesthesia: Lidocaine: Other (none) Area Incised With: 11 Blade (I excised almost the entire surface of the blister, leaving granulation tissue exposed with a small area of slightly necrotic tissue at the posterior end visible.) Drainage: Purulent, Bloody, Large Amount Packed With: Other (Wet-to-dry dressing) Complications: No Course - Vital Signs Last Recorded V/S: Last Vital Signs Temp 98.1 F 08/04/21 18:11 Pulse 107 H 08/04/21 18:27 Resp 18 08/04/21 18:11 BP 142/85 H 08/04/21 18:27 Pulse Ox 96 08/04/21 18:27 - Orders/Labs/Meds Meds: Medications Discontinued Medications Generic Name Dose Route Start Last Admin Trade Name Hannah PRN Reason Stop Dose Admin Trimethoprim/Sulfamethoxazole 2 tab 08/04/21 19:19 08/04/21 19:26 Sulfamethoxazole/Trimethoprim 800-160 Mg Tab PO 08/04/21 19:20 2 tab ONETIME ONE Administration - Re-Assessments/Exams Free Text/Narrative Re-Assessment/Exam: 08/04/21 19:54 Discussed findings and treatment plan with patient. At this point it doesn't appear to be involving bone but not known for sure as it is definitely possible. He will see PCP in 2 days and get in to see podiatry as soon as possible. He will change [id number] dressings daily and take Bactrim DS. Limit weight bearing on crutches. Patient verbalized understanding and agreement with plan. Discharged to home in stable condition with fitted crutches. Departure - Departure Time of Disposition: 19:16 Disposition: Home, Self-Care 01 Condition: Good Clinical Impression: Abscess of right heel Diabetic neuropathy Qualifiers: Diabetes mellitus type: due to underlying condition - Discharge Information Referrals: Karla Lockett MD [Primary Care Provider] - Forms: ED Department Discharge Additional Instructions: Use crutches to limit weight-bearing on right heel as much as possible. Take the Bactrim antibiotic as directed. Change the wet-to-dry dressing once daily as demonstrated. Tomorrow morning call the clinic to see how soon you can get in to see podiatry. Follow up with your PCP on as scheduled. Sepsis Event Note (ED) - Focused Exam Vital Signs: Vital Signs Temp Pulse Resp BP Pulse Ox 08/04/21 18:27 107 H 142/85 H 96 08/04/21 18:11 98.1 F 118 H 18 147/103 H 96
[2021-08-04 18:35] VITALS: BP 142/85; PULSE 107
[2021-08-04] MEDS: Sulfamethoxazole/Trimethoprim 800-160 MG Tab PO ONE (19:26)
== END 2021-08-04 19:45 | disposition home or self-care (01) ==
LOC: KA.ED 17:42
DX: L02.611 Cutaneous abscess of right foot (principal); E11.40 Type 2 diabetes mellitus with diabetic neuropathy, unspecified; Z91.048 Other nonmedicinal substance allergy status; Z79.899 Other long term (current) drug therapy; Z79.84 Long term (current) use of oral hypoglycemic drugs
CPT/HCPCS: 10060; 87070; 87075; 87205; 99283-25; 99284; A9270-GY

== ENCOUNTER 2022-02-26 09:59 | Emergency (ER) | payer MEDICAID ==
[2022-02-26 10:10] VITALS: BP 140/70; PULSE 97
[2022-02-26] MEDS ORDERED: Diphtheria,Pertussis(Acell),Tetanus Vaccine 0.5 ML Syringe IM ONE (10:24)
== END 2022-02-26 10:45 | disposition home or self-care (01) ==
LOC: KA.ED 09:59
DX: S61.233A Puncture wound without foreign body of left middle finger without damage to nail, initial encounter (principal); E11.9 Type 2 diabetes mellitus without complications; F17.210 Nicotine dependence, cigarettes, uncomplicated; Z86.16 Personal history of COVID-19; Z79.899 Other long term (current) drug therapy; Z79.84 Long term (current) use of oral hypoglycemic drugs; Z23 Encounter for immunization; Z91.048 Other nonmedicinal substance allergy status; W29.8XXA Contact with other powered hand tools and household machinery, initial encounter
CPT/HCPCS: 73140-F2; 90471; 90715; 99283

== ENCOUNTER 2022-07-29 02:25 | Emergency (ER) | payer MEDICAID ==
[2022-07-29] MEDS ORDERED: Sodium Chloride 0.9% 10 ML Syringe FLUSH PRN (02:35)
[2022-07-29] MEDS ORDERED: Sodium Chloride 0.9% 1,000 ML IV ONE (02:35)
[2022-07-29] MEDS ORDERED: Ketorolac 30 MG/ML SDV IM ONE (02:35)
[2022-07-29] MEDS ORDERED: Ketorolac 30 MG/ML SDV IVPUSH ONE (02:35)
[2022-07-29 03:42] LABS: ANION GAP 11.8 mmol/L (5-15)
== END 2022-07-29 05:45 | disposition home or self-care (01) ==
LOC: KA.ED 02:25 → MERGE 02:25 → KA.ED 05:45
DX: N23 Unspecified renal colic (principal); D75.9 Disease of blood and blood-forming organs, unspecified; J45.909 Unspecified asthma, uncomplicated; E11.9 Type 2 diabetes mellitus without complications; Z91.048 Other nonmedicinal substance allergy status; Z79.84 Long term (current) use of oral hypoglycemic drugs; Z79.899 Other long term (current) drug therapy
CPT/HCPCS: 74176; 80053; 81001; 85025; 96361; 96372; 96374; 99284; 99284-25; J1885; J3490; J7030

== ENCOUNTER 2022-09-01 16:05 | Emergency (ER) | payer MEDICAID ==
[2022-09-01] MEDS: Tetracaine HCl/PF 0.5% 4 ML Bottle EYERT ONE (16:19)
== END 2022-09-01 16:40 | disposition home or self-care (01) ==
LOC: KA.ED 16:05
DX: T15.01XA Foreign body in cornea, right eye, initial encounter (principal); J45.909 Unspecified asthma, uncomplicated; E11.9 Type 2 diabetes mellitus without complications; Z91.048 Other nonmedicinal substance allergy status; Z79.84 Long term (current) use of oral hypoglycemic drugs; Z79.899 Other long term (current) drug therapy
CPT/HCPCS: 65220; 99283

== ENCOUNTER 2023-07-21 07:51 | Emergency (ER) | payer MEDICAID ==
[2023-07-21] MEDS ORDERED: Sodium Chloride 0.9% 10 ML Syringe FLUSH PRN (08:01)
[2023-07-21] MEDS ORDERED: Naloxone 0.4 MG/ML SDV IVPUSH PRN (08:07)
[2023-07-21] MEDS ORDERED: HYDROmorphone 1 MG/ML Syringe IVPUSH ONE (08:07)
[2023-07-21 08:11] LABS: BASOPHILS ABSOLUTE AUTO 0.16 10^3/uL (0.00-0.10); BASOPHILS PERCENT AUTO 1.8 % (0.0-1.0); EOSINOPHILS ABSOLUTE AUTO 1.09 10^3/uL (0.10-0.30); EOSINOPHILS PERCENT AUTO 12.4 % (1.0-3.0); HEMATOCRIT 44.9 % (40.0-52.0); HEMOGLOBIN 15.3 g/dL (13.0-17.0); IMMATURE GRAN ABSOLUTE AUTO 0.01 10^3/uL (0.00-0.50); IMMATURE GRAN PERCENT AUTO 0.1 % (0.0-5.0); LYMPHOCYTES PERCENT AUTO 38.7 % (20.0-40.0); MEAN CORPUSCULAR HEMOGLOBIN 31.2 pg (27.0-31.0); MEAN CORPUSCULAR HGB CONC 34.1 g/dL (32.0-36.0); MEAN CORPUSCULAR VOLUME 91.4 fL (82.0-92.0); MEAN PLATELET VOLUME 10.4 fL (7.4-10.4); MONOCYTES ABSOLUTE AUTO 0.73 10^3/uL (0.10-0.80); MONOCYTES PERCENT AUTO 8.3 % (2.0-8.0); NEUTROPHILS ABSOLUTE AUTO 3.39 10^3/uL (2.50-7.00); NEUTROPHILS PERCENT AUTO 38.7 % (50.0-70.0); PLATELET COUNT,PLT 216 10^3/uL (150-400); RED BLOOD CELL COUNT 4.91 10^6/uL (4.50-6.00); RED CELL DISTRIBUTION WIDTH 12.5 % (11.5-14.5); WHITE BLOOD CELL COUNT,WBC 8.78 10^3/uL (5.00-10.00)
[2023-07-21 08:27] LABS: ALBUMIN 3.8 g/dL (3.40-5.00); ANION GAP 12.9 mmol/L (5-15); BILIRUBIN TOTAL 0.3 mg/dL (0.2-1.0); CALCIUM 8.6 mg/dL (8.7-10.3); CREATININE 0.83 mg/dL (0.51-1.17); EST CRCL DRUG DOSING (CG) 123.48 mL/min; POTASSIUM,K 3.9 mmol/L (3.5-5.1); PROTEIN TOTAL,TP 6.5 g/dL (6.4-8.2)
[2023-07-21] MEDS ORDERED: Sodium Chloride 0.9% 1,000 ML IV ONE (08:32)
[2023-07-21] MEDS ORDERED: Ketorolac 30 MG/ML SDV IVPUSH ONE (08:32)
[2023-07-21] MEDS ORDERED: Ketorolac 30 MG/ML SDV IM ONE (08:32)
[2023-07-21] MEDS ORDERED: Iopamidol 755 Mg/ML 100 ML Bottle IV ONE (08:34)
[2023-07-21] MEDS ORDERED: Sodium Chloride 0.9% 50 ML IV SCH (08:45)
[2023-07-21 09:09] LABS: APPEARANCE,URINE CLEAR (CLEAR); BILIRUBIN,URINE NEGATIVE (NEGATIVE); COLOR,URINE YELLOW (YELLOW); GLUCOSE,URINE NEGATIVE (NEGATIVE); KETONES,URINE NEGATIVE (NEGATIVE); LEUKOCYTE ESTERASE,URINE NEGATIVE (NEGATIVE); NITRITE,URINE NEGATIVE (NEGATIVE); OCCULT BLOOD,URINE MODERATE (NEGATIVE); PH,URINE 5.5 (5.0-9.0); PROTEIN,URINE NEGATIVE (NEGATIVE); UROBILINOGEN,URINE 0.2 E.U./dL (0.2-1.0)
[2023-07-21 09:19] LABS: BACTERIA,URINE OCCASIONAL /HPF (NONE TO FEW); EPITHELIAL CELLS,URINE RARE /LPF; WBC,URINE 0-5 /HPF (0-5)
== END 2023-07-21 09:56 | disposition home or self-care (01) ==
LOC: KA.ED 07:51
DX: K57.30 Diverticulosis of large intestine without perforation or abscess without bleeding (principal); N23 Unspecified renal colic; R31.9 Hematuria, unspecified; E11.9 Type 2 diabetes mellitus without complications; F17.210 Nicotine dependence, cigarettes, uncomplicated; Z91.048 Other nonmedicinal substance allergy status; Z79.84 Long term (current) use of oral hypoglycemic drugs; Z79.899 Other long term (current) drug therapy; Z86.16 Personal history of COVID-19
CPT/HCPCS: 74177; 80053; 81001; 82150; 83690; 85025; 96361; 96374; 96375; 99284; J1170; J1885; J3490; J7030; Q9967